=== PATIENT | female | born 1975 | race Caucasian/White ===

== ENCOUNTER 2024-01-22 00:57 | Emergency (ER) | payer OTHER, SELFPAY ==
[2024-01-22 01:01] VITALS: BP 136/82
--- NOTE | 2024-01-22 01:50 | ED.GENMED ---
History of Present Illness
General
Chief Complaint: Ear Problem
Source: patient and spouse
Exam Limitations: none
Time Seen by Provider: 01/22/24 01:15
History of Present Illness
History of Present Illness:
This is a 48 year old female that comes in with c/o both ears being clogged. States that she has head congestion and that this has been going on for the past 5 days. States that she has taken Tylenol for discomfort. States that she had diarrhea and
a headache. Denies any fever, chills, chest pain, SOB, cough, abd pain, nausea, vomiting, dizziness, urinary burning.
Past History
Past History
ED Past Medical History: Other (Myopia); Negative Asthma, HTN, Hypercholesterolemia or NIDDM
ED Past Surgical History:
Social History
Tobacco: Non-smoker
Alcohol: None
Personal:
Living: with family
Review of Systems
Review of Systems
All Other Systems: ROS reviewed and negative except as documented in HPI and ROS
Constitutional: Reports no symptoms; Denies fever or chills
EENT: Reports other (ears are clogged and head is congested.)
Respiratory: Reports no symptoms; Denies cough or trouble breathing
Cardiac: Reports no symptoms; Denies chest pain
ABD/GI: Reports no symptoms; Denies abdominal pain, nausea, vomiting or diarrhea
: Reports no symptoms; Denies dysuria, frequency or urgency
Musculoskeletal: Reports no symptoms
Skin: Reports no symptoms
Neurological: Reports headache; Denies dizzy
Psychiatric: Reports no symptoms
Phy Exam
General Physical Exam
General Presentation: well appearing and no apparent distress
General age: appears stated age
General Skin: warm and dry
General Habitus: normal
General Mental: alert
General Hydration: appears well hydrated
ENT Exam
ENT Exam: pharynx normal, neck supple and other (Unable to see the Tympanic membrane due to cerumen)
Eye Exam
Eye Exam: EOMI
Musculoskeletal Exam
Musculoskeletal Exam: full ROM and no edema
Skin Exam
Skin Exam: normal color, warm/dry, no rash and no petechia
Psychiatric Exam
Psychiatric Exam: normal mood/affect
Course
Vital Signs
Initial and Last Documented VS:
Initial Vital Signs
Temp Pulse Resp BP Pulse Ox
97.8 F 72 18 136/82 100
01/22/24 01:01 01/22/24 01:01 01/22/24 01:01 01/22/24 01:01 01/22/24 01:01
Last Documented Vital Signs
Temp Pulse Resp BP Pulse Ox
97.8 F 72 18 136/82 100
01/22/24 01:01 01/22/24 01:01 01/22/24 01:01 01/22/24 01:01 01/22/24 01:01
MDM/Problems Addressed
Differential Diagnosis Includes:
Cerumen, Head congestion
MDM/Problems Addressed:
This is a 48 year old female that comes in with c/o ears clogged and head congestion. States that she has had this for 5 days. States that her both ears hurt. States that she has taken Tylenol
Both ears with a lot of Cerumen. Flushed with large amount of Cerumen removed. Patient will need to continue with Debrox and follow up with the ENT specialist for further removal of Cerumen as patient was dizzy with procedure. Will discharge home.
Chronic conditions affecting care:
NA
Acute Exacerbation and/or Progression of Chronic Illness:
NA
*Pulse Oximetry
Patient hypoxic: no
*EKG
Interpreted by ED Provider?: NA
Rate: EKG- N/A
*Shade Cutter Interpretation
Rate: Shade Cutter- N/A
*Critical Care Note
Total Time (30-74mins, 75-104mins- exclusive of procedures): Not Applicable
ED Attending Note
-
Portions of this chart may have been created with voice recognition software.� Occasional wrong word or��sound alike� substitutions may have occurred due to the inherent limitations of voice recognition software.
Discharge Plan
Departure
Patient Disposition: Home (Routine Discharge)
Date of Disposition: 01/22/24
Time of Disposition: 01:58
Patient with high blood pressure during this ER visit?: Yes
Condition: Good
Covid-19: Not Applicable
Discharge Problem:
Excessive cerumen in ear canal
Instructions: Ear wax impaction, BLOOD PRESSURE
Referrals:
NONE,* [Family Provider] -
Dean Ballard MD [Active] - Follow up in 2-3 days
Activity Restrictions/Additional Instructions:
As discussed, you have excessive ear wax. Your both ears have been flushed and some has been removed. You may also use Debrox which is over the counter to help with further removal. You can also follow up with the ENT specialist for further
evaluation and further treatment. You may also want to try Zyrtec which is over the counter as your Congestion may be due to allergies. Follow up with the family doctor for recheck. IF YOU HAVE ANY OTHER CONCERNS PLEASE RETURN TO THE EMERGENCY ROOM.
Interventions
Interventions:
ED- Fall Risk Assessment Last Done: 01/22/24 01:01
Discharge Date and Time
Print Language: OCCITAN
== END 2024-01-22 02:50 | disposition home or self-care (01) ==
LOC: EMR 00:57
PROVIDERS: EMERGENCY PHYSICIAN Student in an Organized Health Care Education/Training Program
DX: H61.23 Impacted cerumen, bilateral (principal); E11.9 Type 2 diabetes mellitus without complications; I10 Essential (primary) hypertension
CPT/HCPCS: 69209; 99282